=== PATIENT | female | born 1990 | race Caucasian/White ===

== ENCOUNTER 2017-02-23 14:25 | Inpatient (IN) | payer OTHER ==
[2017-02-23 15:00] VITALS: BMI 27.8
[2017-02-23] MEDS ORDERED: Sodium Chloride 0.9% 10 ML ONE (15:29)
[2017-02-23 16:13] LABS: Hematocrit 35.5 % (36.0-47.0); Mean Platelet Volume 8.7 fL (7.4-10.4); Red Blood Cell (RBC) Count 4.19 mill/uL (4.20-5.40); White Blood Cell (WBC) Count 14.9 thou/uL (4.8-10.8)
[2017-02-23] MEDS ORDERED: FLU VACC QS2017-18 36 mo. & older 0.5 ML SYRINGE IM ONE (16:15)
[2017-02-23] MEDS ORDERED: Acetaminophen 500 MG TAB PO PRN (16:33)
[2017-02-23] MEDS ORDERED: Promethazine HCl 25 MG/ML VIAL IM PRN (16:33)
[2017-02-23] MEDS ORDERED: Carboprost 250 MCG/ML AMP IM PRN (16:33)
[2017-02-23] MEDS ORDERED: HYDROcodone/Acetaminophen 5/325 mg Tablet PO PRN ×2 (16:33)
[2017-02-23] MEDS ORDERED: Ibuprofen 800 MG TAB PO PRN (16:33)
[2017-02-23] MEDS ORDERED: Misoprostol 200 MCG TAB PR PRN (16:33)
[2017-02-23] MEDS ORDERED: Diphenoxylate HCl/Atropine Tablet PO PRN ×2 (16:33)
[2017-02-23] MEDS ORDERED: Ondansetron HCl/PF 4 MG/2 ML Vial IVP PRN (16:33)
[2017-02-23] MEDS ORDERED: Lidocaine 1% (PF) 30 ML VIAL SC PRN (16:33)
--- NOTE | 2017-02-23 17:59 | PDOC.LDHP ---
Labor and Delivery H&P Chief complaint: contractions HPI: Pt started having real contractions around 10 am this morning. Denies LOF, VB. Reports good movement. Current gestational age (weeks): 39 Due date: 02/24/17 Grav: 2 Para: 1 OB History Details: #1 SAB #2 9+ # # 3 current Abnormal US findings: No Past Medical History: Anemai - on iron Current medications: pre- vitamins, iron Previous surgical history: none (Knee surgery age 15) Allergies/Adverse Reactions: Allergies Allergy/AdvReac Type Severity Reaction Status Date / Time No Known Allergies Allergy Verified 02/23/17 15:02 Social history: none - Physical Exam Vital signs reviewed and normal: yes General: breathing through contractions Heart: RRR Lungs: nonlabored breathing Abdomen: gravid Extremeties: trace edema FHT: category 1 - Vaginal Exam cm dilated: 7 Effacement: 100% Station: 0 - OB Labs Blood type: A RH: positive HIV: negative RPR: negative HEPSAg: negative 1 hour GCT: negative GBS: negative Urine drug screen: not done Additional Labs: rubella immune - Assessment L&D Assessment: term patient in labor Anticipate - Plan Plan: admit to L&D
[2017-02-23] MEDS: LR / Pitocin 40 units/1000 ml 1,000 ML IV PRN (20:56)
--- NOTE | 2017-02-23 21:30 | PDOC.OPDEL ---
OB Operative/Delivery Note Delivery Dr/Surgeon: Urbano Swain CNM Pre-Delivery Diagnosis: active labor Procedure/Post Delivery Dx: spontaneous vaginal delivery Weeks gestation: 39 Anesthesia: none - Findings A Sex: female Weight: 8 lb 6 oz - 1 min: 8 - 5 min: 9 - Additional Findings/Plan Placenta delivered: spontaneous Repaired Obstetrical Laceration: none Estimated blood loss: 700ml Compilations/Other Findings: Bloody fluid with AROM. Dr. Farnsworth was notified and pt was changed from intermittent to continuous monitoring. I remained at bedside until delivery. At the time of delivery of the shoulders, a small clot approximately 50ml was expelled with the delivery of the body. Immediately following delivery, there were several large gushes of blood. The pitocin was started prior to the delivery of the placenta. At the time of the placenta delivery many clots were expelled with the placenta, approximately 500ml. 8000mcg of cytotec was placed [place]. The uterus was firm and below the umbilicus. A manual sweep of the posterior vaginal vault was done without any clots removed. The jaxson pads were saved and weighed. The placenta will be sent to pathology to r/o abruption and a KB stain ordered. Post delivery plan: routine recovery
[2017-02-24] MEDS: LR / Pitocin 40 units/1000 ml 1,000 ML IV PRN
[2017-02-24] MEDS ORDERED: LR / Pitocin 40 units/1000 ml 1,000 ML IV SCH (00:34)
[2017-02-24] MEDS ORDERED: Ondansetron HCl/PF 4 MG/2 ML Vial IVP PRN (00:34)
[2017-02-24] MEDS ORDERED: Bisacodyl 10 MG SUPP PR PRN (00:34)
[2017-02-24] MEDS ORDERED: HYDROcodone/Acetaminophen 5/325 mg Tablet PO PRN ×2 (00:34)
[2017-02-24] MEDS ORDERED: Adacel (T-DAP) 0.5 ML VIAL IM ONE (00:34)
[2017-02-24] MEDS ORDERED: Benzocaine/Menthol 20-0.5% 60 ML CAN TOP PRN (00:34)
[2017-02-24] MEDS ORDERED: Milk Of Magnesia 30 ML UDCUP PO PRN (00:34)
[2017-02-24 05:17] LABS: Hematocrit 30.9 % (36.0-47.0); Mean Platelet Volume 8.3 fL (7.4-10.4); Red Blood Cell (RBC) Count 3.65 mill/uL (4.20-5.40); White Blood Cell (WBC) Count 19.1 thou/uL (4.8-10.8)
[2017-02-24] MEDS: Ibuprofen 800 MG TAB PO SCH ×3 (06:07→21:57)
[2017-02-24] MEDS: Ferrous Sulfate 325 MG TAB PO SCH ×2 (08:53→18:34)
[2017-02-24] MEDS: Prenatal Vitamin 1 TAB PO SCH (08:54)
[2017-02-24] MEDS: Docusate (Surfak) 240 MG CAP PO SCH ×2 (08:54→21:57)
--- NOTE | 2017-02-24 11:10 | PDOC.PP ---
Post Progress Note Post Day #: 1 Subjective: Pt's is doing well. No concerns. BF well. Up to shower. Bleeding minimal. no pain PO intake tolerated: yes Flatus: yes Ambulation: yes Vital Signs (12 hours) Temp Pulse Resp BP 02/24/17 08:00 98.1 F 61 14 119/65 02/24/17 03:46 98.8 F 84 16 112/63 02/24/17 01:05 98.2 F 95 16 114/58 L 02/23/17 23:55 98.0 F 77 16 109/63 Weight Weight 178 lb - Physical Examination General: NAD Cardiovascular: no m/r/g, RRR Respiratory: clear to auscultation bilaterally Abdominal: + bowel sounds, lochia (minimal) Extremities: negative homans (B) Skin: no rash Neurological: no gross focal deficits Psychiatric: A&Ox3 Result Diagrams: 02/24/17 05:03 Additional Labs: Post Labs Blood Type A POSITIVE 02/23/17 15:50 Hep Bs Antigen Non-Reactive S/CO (NonReactive) 02/23/17 15:50 (1) (spontaneous vaginal delivery) Code(s): O80 - ENCOUNTER FOR FULL-TERM UNCOMPLICATED DELIVERY Status: Acute - Assessment/Plan A: now P2 s/p at 39w6d. NML PP exam. P: plan for discharge for tomorrow.
[2017-02-25] MEDS: Ibuprofen 800 MG TAB PO SCH (06:06)
[2017-02-25 07:53] VITALS: BP 111/66; TEMP 98.1
[2017-02-25] MEDS: Prenatal Vitamin 1 TAB PO SCH (08:32)
[2017-02-25] MEDS: Docusate (Surfak) 240 MG CAP PO SCH (08:32)
[2017-02-25] MEDS: Ferrous Sulfate 325 MG TAB PO SCH (08:33)
== END 2017-02-25 10:50 | disposition home or self-care (01) | DRG 774 ==
LOC: L&D/OP 14:25 → L&D-LIB 15:34 → 3SW 23:54
PROVIDERS: ADMIT Obstetrics & Gynecology; ATTEND Obstetrics & Gynecology
PROC: 10E0XZZ Delivery of Products of Conception, External Approach (ICD-10-PCS; principal; 2017-02-23)
PROC: 10907ZC Drainage of Amniotic Fluid, Therapeutic from Products of Conception, Via Natural or Artificial Opening (ICD-10-PCS; 2017-02-23)
DX: O45.93 Premature separation of placenta, unspecified, third trimester (principal); Z37.0 Single live birth; Z3A.39 39 weeks gestation of pregnancy
CPT/HCPCS: 36415; 85027; 85460; 86780; 87340; 88307; A4216; J2001